=== PATIENT | female | born 1940 | race Caucasian/White ===

== ENCOUNTER 2021-06-28 13:36 | Outpatient (CLI) | payer MEDICARE, OTHER ==
[2021-06-28 14:29] LABS: Estimated GFR-MDRD - POC Greater than 90
== END 2021-06-28 13:37 | disposition home or self-care (01) ==
LOC: CSHCT 13:36
PROVIDERS: ATTEND Radiology Radiation Oncology
DX: C85.91 Non-Hodgkin lymphoma, unspecified, lymph nodes of head, face, and neck (principal); Z92.3 Personal history of irradiation
CPT/HCPCS: 70481; 82565

== ENCOUNTER 2022-05-24 13:09 | Emergency (ER) | payer OTHER, MEDICARE | END 2022-05-24 15:21 | disposition home or self-care (01) | LOC: CSHERS 13:09 | DX: S00.03XA Contusion of scalp, initial encounter (principal); I10 Essential (primary) hypertension; E11.9 Type 2 diabetes mellitus without complications; W01.0XXA Fall on same level from slipping, tripping and stumbling without subsequent striking against object, initial encounter | CPT/HCPCS: 70450; 72125 ==

== ENCOUNTER 2023-01-18 11:08 | Emergency (ER) | payer MEDICARE, OTHER ==
[2023-01-18 13:48] LABS: #Basophils 0.1 10x3/uL (0.0-0.2); #Eosinphils 0.1 10x3/uL (0.0-0.5); #Monocytes 1.1 10x3/uL (0.0-1.1); #Neutrophils 9.5 10x3/uL (1.5-8.4); %Basophils 0.4 % (0.0-2.0); %Eosinophils 0.7 % (0.0-6.0); %Lymphocytes 12.9 % (18.0-47.0); %Monocytes 8.7 % (0.0-10.0); %Neutrophils 76.9 % (40.0-75.0); Hematocrit 29.7 % (34.9-44.5); Hemoglobin 10.2 g/dL (12.0-15.5); Mean Corpuscular HGB CONC 34.3 g/dL (32.0-36.0); Mean Corpuscular Hemoglobin 31.2 pg (27.0-33.0); Mean Corpuscular Volume 90.8 fl (81.6-98.3); Mean Platelet Volume 10.2 fl (7.4-10.4); Platelet Count 375 10x3/uL (150-450); RBC Distribution Width 13.4 % (11.5-14.5); Red Blood Cell (RBC) Count 3.27 10x6/uL (3.90-5.03); White Blood Cell (WBC) Count 12.3 10x3/uL (3.5-10.5)
[2023-01-18 13:56] LABS: ALT (SGPT) 18 U/L (8-55); AST (SGOT) 24 U/L (5-34); Alkaline Phosphatase 50 U/L (40-110); Anion Gap 16 mmol/L (10-20); BUN (Urea Nitrogen) 24 mg/dL (9.8-20.1); Bilirubin, Total 1.1 mg/dL (0.2-1.2); CK (CPK) 45 U/L (29-168); Calc. Creatinine Clearance 0 mL/min (70-130); Calcium 9.7 mg/dL (7.8-10.44); Carbon Dioxide 25 mmol/L (23-31); Chloride 94 mmol/L (98-107); Estimated GFR 63; Globulin 2.6 g/dL (2.4-3.5); Glucose 94 mg/dL (83-110); Potassium 4.4 mmol/L (3.5-5.1); Protein, Total 6.6 g/dL (5.8-8.1); Sodium 131 mmol/L (136-145)
[2023-01-18 14:02] LABS: Troponin I Less than 0.010 ng/mL (< 0.028)
[2023-01-18 15:36] LABS: Bilirubin Neg (Negative); Blood, Urine Negative (Negative); Clarity Clear (Clear); Glucose, Urine (Dipstick) Normal (Negative); Ketone, Urine Negative (Negative); Leukocyte Negative (Negative); Nitrite Negative (Negative); Protein, Urine (Dipstick) Negative (Neg-Trace); Urobilinogen Normal mg/dL (Less than 2)
[2023-01-18 16:11] LABS: Bacteria/HPF 2+ HPF (None Seen); CAUTI Indications for Culture Dysuria,urgency,freq; Mucous/LPF 1+ LPF (<2+); RBC/HPF 0-3 HPF (0-3); WBC/HPF 0-3 HPF (0-3)
[2023-01-18 16:12] LABS: Urine Culture Reflex No No
== END 2023-01-18 16:38 | disposition home or self-care (01) ==
LOC: CSHERS 11:08
DX: S00.03XA Contusion of scalp, initial encounter (principal); S09.90XA Unspecified injury of head, initial encounter; R55 Syncope and collapse; I10 Essential (primary) hypertension; W19.XXXA Unspecified fall, initial encounter
CPT/HCPCS: 36415; 70450; 72125; 80053; 81001; 82550; 84484; 85025; 93005

== ENCOUNTER 2023-06-18 13:08 | Outpatient (CLI) | payer MEDICARE, OTHER | END 2023-06-18 13:09 | disposition home or self-care (01) | LOC: CSHMAMMO 13:08 | PROVIDERS: ATTEND Internal Medicine | DX: Z12.31 Encounter for screening mammogram for malignant neoplasm of breast (principal); M81.0 Age-related osteoporosis without current pathological fracture | CPT/HCPCS: 77063; 77067; 77080 ==

== ENCOUNTER 2024-03-16 18:25 | Inpatient (IN) | payer MEDICARE, OTHER ==
[~2024-03-16 18:25] MED LIST: Iopamidol 370 76% 100 ML VIAL ONE
[2024-03-16 19:41] LABS: #Basophils 0.04 10x3/uL (0.0-0.2); #Eosinophils 0.08 10x3/uL (0.0-0.5); #Monocytes 1.22 10x3/uL (0.0-1.1); #Neutrophils 11.49 10x3/uL (1.5-8.4); %Basophils 0.3 % (0.0-2.0); %Eosinophils 0.6 % (0.0-6.0); %Lymphocytes 9.3 % (18.0-47.0); %Monocytes 8.6 % (0.0-10.0); %Neutrophils 80.7 % (40.0-75.0); Hematocrit 29.4 % (34.9-44.5); Hemoglobin 9.1 g/dL (12.0-15.5); Mean Corpuscular Hemoglobin 26.4 pg (27.0-33.0); Mean Corpuscular Volume 85.2 fL (81.6-98.3); Mean Platelet Volume 10.3 fL (7.4-10.4); Platelet Count 419 10x3/uL (150-450); RBC Distribution Width 18.1 % (11.5-14.5); Red Blood Cell (RBC) Count 3.45 10x6/uL (3.90-5.03); White Blood Cell (WBC) Count 14.2 10x3/uL (3.5-10.5)
[2024-03-16 20:50] LABS: ALT (SGPT) 13 U/L (8-55); AST (SGOT) 14 U/L (5-34); Albumin 2.7 g/dL (3.4-4.8); Alkaline Phosphatase 57 U/L (40-110); Anion Gap 16 mmol/L (10-20); BUN (Urea Nitrogen) 19 mg/dL (9.8-20.1); Bilirubin, Total 0.8 mg/dL (0.2-1.2); Calc. Creatinine Clearance 0 mL/min (70-130); Calcium 9.3 mg/dL (7.8-10.44); Carbon Dioxide 22 mmol/L (23-31); Chloride 100 mmol/L (98-107); Estimated GFR 71; Globulin 3.9 g/dL (2.4-3.5); Glucose 124 mg/dL (83-110); Potassium 3.5 mmol/L (3.5-5.1); Protein, Total 6.6 g/dL (5.8-8.1); Sodium 134 mmol/L (136-145)
[2024-03-16 21:43] LABS: Bilirubin Neg (Negative); Blood, Urine 10 (Negative); Clarity Clear (Clear); Glucose, Urine (Dipstick) Normal (Negative); Ketone, Urine Negative (Negative); Leukocyte Negative (Negative); Nitrite Negative (Negative); Protein, Urine (Dipstick) 100 mg/dl (Neg-Trace); Specific Gravity, Urine 1.015 (1.005-1.030); Urobilinogen Normal mg/dL (Less than 2)
[2024-03-16 21:51] LABS: Bacteria/HPF Rare-Few HPF (None Seen); CAUTI Indications for Culture Alt mental st,lethar; RBC/HPF 0-3 HPF (0-3); Squamous Epithelial 0-3 HPF (0-3); WBC/HPF 0-3 HPF (0-3)
[2024-03-16 21:52] LABS: Urine Culture Reflex No No
[2024-03-16] MEDS ORDERED: Vancomycin 1 GM VIAL ONE (22:07)
[2024-03-16] MEDS ORDERED: Piperacillin/Tazobactam 4.5 GM VIAL ONE (22:07)
[2024-03-16] MEDS ORDERED: Acetaminophen 500 MG TAB ONE (22:07)
[2024-03-16] MEDS ORDERED: Calcium Carbonate 500 MG ChewTAB PO PRN (22:26)
[2024-03-16] MEDS ORDERED: Guaifenesin DM 100-10/5 ML UDCUP PO PRN (22:26)
[2024-03-16] MEDS ORDERED: Ondansetron PF 4 MG/2 ML Vial IVP PRN (22:26)
[2024-03-16] MEDS ORDERED: Senokot S 8.6-50 MG TAB PO PRN (22:26)
[2024-03-16] MEDS ORDERED: Polyethylene Glycol 3350 17 GM Packet PO PRN (22:29)
[2024-03-17] MEDS: Lactated Ringer's 500 ML IV SCH (00:34)
[2024-03-17] MEDS: Lactated Ringer's 1,000 ML IV SCH (00:35)
[2024-03-17 00:44] VITALS: BMI 24.2
[2024-03-17] MEDS ORDERED: Piperacillin/Tazobactam 3.375 GM in Sodium Chloride 0.9% 100 ML IVPB SCH (02:00)
[2024-03-17 04:04] LABS: #Basophils 0.02 10x3/uL (0.0-0.2); #Monocytes 0.66 10x3/uL (0.0-1.1); #Neutrophils 9.63 10x3/uL (1.5-8.4); %Basophils 0.2 % (0.0-2.0); %Lymphocytes 3.5 % (18.0-47.0); %Monocytes 6.1 % (0.0-10.0); %Neutrophils 88.5 % (40.0-75.0); Hematocrit 25.2 % (34.9-44.5); Hemoglobin 7.8 g/dL (12.0-15.5); Mean Corpuscular Hemoglobin 26.3 pg (27.0-33.0); Mean Corpuscular Volume 84.8 fL (81.6-98.3); Mean Platelet Volume 10.4 fL (7.4-10.4); Platelet Count 383 10x3/uL (150-450); RBC Distribution Width 17.7 % (11.5-14.5); Red Blood Cell (RBC) Count 2.97 10x6/uL (3.90-5.03); White Blood Cell (WBC) Count 10.9 10x3/uL (3.5-10.5)
[2024-03-17 04:20] LABS: Anion Gap 17 mmol/L (10-20); BUN (Urea Nitrogen) 16 mg/dL (9.8-20.1); Calc. Creatinine Clearance 49 mL/min (70-130); Calcium 8.5 mg/dL (7.8-10.44); Carbon Dioxide 20 mmol/L (23-31); Chloride 103 mmol/L (98-107); Estimated GFR 73; Glucose 141 mg/dL (83-110); Potassium 3.8 mmol/L (3.5-5.1); Sodium 136 mmol/L (136-145)
[2024-03-17] MEDS: Piperacillin/Tazobactam 3.375 GM in Sodium Chloride 0.9% 100 ML IVPB SCH (06:11)
[2024-03-17] MEDS: Levothyroxine Sodium 75 MCG TAB PO SCH (06:11)
[2024-03-17] MEDS: Vancomycin HCl 500 MG in Sodium Chloride 0.9% 100 ML IVPB SCH (07:02)
[2024-03-17] MEDS: predniSONE 20 MG TAB PO SCH (09:41)
[2024-03-17] MEDS: Gabapentin 100 MG CAP PO SCH (09:41)
[2024-03-17] MEDS: Polyethylene Glycol 3350 17 GM Packet PO SCH (09:41)
[2024-03-17] MEDS: Sucralfate 1 GM TAB PO SCH (09:41)
[2024-03-17] MEDS: Aspirin 81 mg Enteric Coated Tablet PO SCH (09:41)
[2024-03-17] MEDS: Enoxaparin 40 MG (0.4 mL) SYRINGE SC SCH (09:41)
[2024-03-17] MEDS: Pantoprazole DR 40 MG TAB PO SCH (09:41)
[2024-03-17] MEDS: FLU (Fluad Triv) TS24-25 (65UP)/MF59C/PF 45 MCG/0.5 ML Syringe IM ONE (09:42)
[2024-03-17] MEDS: Polyvinyl Alcohol 1.4%/Povidone 0.6% Opth Drops EA EYE SCH (12:04)
[2024-03-17] MEDS: Lidocaine 1% w/Epinephrine 1:200K 30 ML VIAL FS SCH (17:05)
[2024-03-17 17:57] VITALS: BMI 24.2
[2024-03-17] MEDS: Atorvastatin Calcium 10 MG TAB PO SCH (22:16)
[2024-03-17] MEDS: Vancomycin 1 GM in Sodium Chloride 0.9% 250 ML 250 ML IVPB SCH (22:17)
[2024-03-17] MEDS: Cyclobenzaprine 10 MG TAB PO PRN (23:19)
[2024-03-17] MEDS: traMADol HCl 50 MG TAB PO PRN (23:19)
[2024-03-18 03:29] LABS: #Basophils 0.02 10x3/uL (0.0-0.2); #Eosinophils 0.04 10x3/uL (0.0-0.5); #Monocytes 0.61 10x3/uL (0.0-1.1); #Neutrophils 8.42 10x3/uL (1.5-8.4); %Basophils 0.2 % (0.0-2.0); %Eosinophils 0.4 % (0.0-6.0); %Lymphocytes 8.9 % (18.0-47.0); %Monocytes 6.1 % (0.0-10.0); %Neutrophils 83.9 % (40.0-75.0); Hematocrit 23.1 % (34.9-44.5); Hemoglobin 7.1 g/dL (12.0-15.5); Mean Corpuscular HGB CONC 30.7 g/dL (32.0-36.0); Mean Corpuscular Hemoglobin 26.1 pg (27.0-33.0); Mean Corpuscular Volume 84.9 fL (81.6-98.3); Mean Platelet Volume 10.4 fL (7.4-10.4); Platelet Count 368 10x3/uL (150-450); RBC Distribution Width 17.5 % (11.5-14.5); Red Blood Cell (RBC) Count 2.72 10x6/uL (3.90-5.03)
[2024-03-18 03:43] LABS: Vancomycin, Random 19.6 ug/mL (See Comment)
[2024-03-18 03:44] LABS: Anion Gap 13 mmol/L (10-20); BUN (Urea Nitrogen) 16 mg/dL (9.8-20.1); Calc. Creatinine Clearance 53 mL/min (70-130); Calcium 8.4 mg/dL (7.8-10.44); Carbon Dioxide 23 mmol/L (23-31); Chloride 105 mmol/L (98-107); Estimated GFR 81; Glucose 103 mg/dL (83-110); Potassium 3.4 mmol/L (3.5-5.1); Sodium 138 mmol/L (136-145)
[2024-03-18] MEDS: Vancomycin HCl 750 MG in Sodium Chloride 0.9% 250 ML 250 ML IVPB SCH (11:02)
[2024-03-19 04:18] LABS: #Basophils 0.02 10x3/uL (0.0-0.2); #Neutrophils 10.57 10x3/uL (1.5-8.4); %Basophils 0.2 % (0.0-2.0); %Eosinophils 0.8 % (0.0-6.0); %Monocytes 7.7 % (0.0-10.0); %Neutrophils 80.8 % (40.0-75.0); Hemoglobin 7.4 g/dL (12.0-15.5); Mean Corpuscular HGB CONC 30.8 g/dL (32.0-36.0); Mean Corpuscular Hemoglobin 26.5 pg (27.0-33.0); Mean Platelet Volume 10.2 fL (7.4-10.4); Platelet Count 392 10x3/uL (150-450); RBC Distribution Width 17.7 % (11.5-14.5); Red Blood Cell (RBC) Count 2.79 10x6/uL (3.90-5.03); White Blood Cell (WBC) Count 13.1 10x3/uL (3.5-10.5)
[2024-03-19 04:34] LABS: Anion Gap 15 mmol/L (10-20); BUN (Urea Nitrogen) 19 mg/dL (9.8-20.1); Calc. Creatinine Clearance 39 mL/min (70-130); Calcium 8.4 mg/dL (7.8-10.44); Carbon Dioxide 22 mmol/L (23-31); Chloride 104 mmol/L (98-107); Estimated GFR 56; Glucose 92 mg/dL (83-110); Iron 17 ug/dL (50-170); Iron Binding Capacity, Total 246 mcg/dL (265-497); Potassium 3.7 mmol/L (3.5-5.1); Sodium 137 mmol/L (136-145)
[2024-03-19] MEDS ORDERED: cefTRIAXone Sodium 2,000 MG in Syringe 0 ML IVPB SCH (08:30)
[2024-03-19] MEDS: cefTRIAXone\\ROCEPHIN 2 GM in Sodium Chloride 0.9% 100 ML IVPB SCH (08:43)
[2024-03-19] MEDS ORDERED: Sodium Bicarbonate 2.5 MEQ/5 ML SDV ONE (10:28)
[2024-03-19] MEDS ORDERED: Lidocaine 1% PF 5 ML VIAL ONE (10:28)
[2024-03-19] MEDS: Acetaminophen 325 MG TAB PO PRN (10:53)
[2024-03-19] MEDS ORDERED: Vancomycin HCl 750 MG in Sodium Chloride 0.9% 250 ML 250 ML IVPB SCH (11:00)
[2024-03-19] MEDS: DAPTOmycin 500 MG in Sodium Chloride 0.9% 50 ML IVPB SCH (12:45)
[2024-03-19] MEDS: Lactated Ringer's 1,000 ML IV SCH (15:13)
[2024-03-20 04:21] LABS: #Basophils 0.02 10x3/uL (0.0-0.2); #Eosinophils 0.06 10x3/uL (0.0-0.5); #Monocytes 0.81 10x3/uL (0.0-1.1); %Basophils 0.2 % (0.0-2.0); %Eosinophils 0.5 % (0.0-6.0); %Monocytes 7.3 % (0.0-10.0); %Neutrophils 78.4 % (40.0-75.0); Hematocrit 22.2 % (34.9-44.5); Hemoglobin 6.8 g/dL (12.0-15.5); Mean Corpuscular HGB CONC 30.6 g/dL (32.0-36.0); Mean Corpuscular Hemoglobin 26.4 pg (27.0-33.0); Mean Platelet Volume 10.5 fL (7.4-10.4); Platelet Count 356 10x3/uL (150-450); RBC Distribution Width 17.7 % (11.5-14.5); Red Blood Cell (RBC) Count 2.58 10x6/uL (3.90-5.03); White Blood Cell (WBC) Count 11.1 10x3/uL (3.5-10.5)
[2024-03-20 04:45] LABS: Anion Gap 14 mmol/L (10-20); BUN (Urea Nitrogen) 19 mg/dL (9.8-20.1); CK (CPK) 42 U/L (29-168); Calc. Creatinine Clearance 52 mL/min (70-130); Calcium 8.4 mg/dL (7.8-10.44); Carbon Dioxide 24 mmol/L (23-31); Chloride 104 mmol/L (98-107); Estimated GFR 78; Glucose 108 mg/dL (83-110); Potassium 3.8 mmol/L (3.5-5.1); Sodium 138 mmol/L (136-145)
[2024-03-20 19:17] LABS: Hematocrit 31.2 % (34.9-44.5); Hemoglobin 9.7 g/dL (12.0-15.5)
[2024-03-21 03:52] LABS: #Basophils 0.02 10x3/uL (0.0-0.2); #Eosinophils 0.04 10x3/uL (0.0-0.5); #Monocytes 0.65 10x3/uL (0.0-1.1); #Neutrophils 7.91 10x3/uL (1.5-8.4); %Basophils 0.2 % (0.0-2.0); %Eosinophils 0.4 % (0.0-6.0); %Lymphocytes 12.9 % (18.0-47.0); %Monocytes 6.5 % (0.0-10.0); %Neutrophils 79.4 % (40.0-75.0); Hematocrit 26.1 % (34.9-44.5); Hemoglobin 8.6 g/dL (12.0-15.5); Mean Corpuscular Hemoglobin 27.4 pg (27.0-33.0); Mean Corpuscular Volume 83.1 fL (81.6-98.3); Mean Platelet Volume 10.8 fL (7.4-10.4); Platelet Count 365 10x3/uL (150-450); RBC Distribution Width 16.9 % (11.5-14.5); Red Blood Cell (RBC) Count 3.14 10x6/uL (3.90-5.03)
[2024-03-21] MEDS: Ferrous Sulfate 325 MG TAB PO SCH (10:27)
[2024-03-21 13:15] VITALS: BP 150/72; TEMP 98.5
== END 2024-03-21 14:45 | DRG 853 ==
LOC: CSHERS 18:25 → CSHTELE 22:09
PROVIDERS: ADMIT Student in an Organized Health Care Education/Training Program; ATTEND Internal Medicine
PROC: 3E03329 Introduction of Other Anti-infective into Peripheral Vein, Percutaneous Approach (ICD-10-PCS; 2024-03-16)
PROC: 0QB10ZZ Excision of Sacrum, Open Approach (ICD-10-PCS; 2024-03-17)
PROC: 02HV33Z Insertion of Infusion Device into Superior Vena Cava, Percutaneous Approach (ICD-10-PCS; principal; 2024-03-19)
PROC: B5181ZA Fluoroscopy of Superior Vena Cava using Low Osmolar Contrast, Guidance (ICD-10-PCS; 2024-03-19)
PROC: 30233N1 Transfusion of Nonautologous Red Blood Cells into Peripheral Vein, Percutaneous Approach (ICD-10-PCS; 2024-03-20)
DX: A41.9 Sepsis, unspecified organism (principal); G93.41 Metabolic encephalopathy; L89.153 Pressure ulcer of sacral region, stage 3; L89.154 Pressure ulcer of sacral region, stage 4; M46.28 Osteomyelitis of vertebra, sacral and sacrococcygeal region; C85.90 Non-Hodgkin lymphoma, unspecified, unspecified site; I50.32 Chronic diastolic (congestive) heart failure; Z88.2 Allergy status to sulfonamides; R65.20 Severe sepsis without septic shock; Z88.8 Allergy status to other drugs, medicaments and biological substances; Z79.899 Other long term (current) drug therapy; Z79.890 Hormone replacement therapy; E78.5 Hyperlipidemia, unspecified; E03.9 Hypothyroidism, unspecified; Z98.890 Other specified postprocedural states; D50.9 Iron deficiency anemia, unspecified; I11.0 Hypertensive heart disease with heart failure; Z89.511 Acquired absence of right leg below knee
CPT/HCPCS: 36415; 36416; 36430; 36573; 71045; 72193; 80048; 80053; 80202; 81001; 82550; 82728; 83540; 83550; 83605; 84145; 85025; 86140; 86850; 86900; 86901; 87040; 87428; 93005; 94762; 96365; 97139; C1751; J0696; J0878; J1650; J2543; J3370; J7050; J7120; J7512; P9016; Q9967